=== PATIENT | male | born 1990 | race Caucasian/White ===

== ENCOUNTER 2020-06-25 18:03 | Emergency (ER) | payer MEDICAID ==
[~2020-06-25] VITALS: Ht 177.8 cm; Wt 79.8 kg
[2020-06-25 18:19] VITALS: Ht 177.8 cm; Wt 79.8 kg
[2020-06-25 19:03] VITALS: BP 150/94
== END 2020-06-25 19:03 | disposition home or self-care (01) ==
LOC: ED 18:03
DX: K13.0 Diseases of lips (principal); F31.9 Bipolar disorder, unspecified
CPT/HCPCS: J2001